=== PATIENT | male | born 1950 | race Caucasian/White ===

== ENCOUNTER 2021-01-10 06:19 | Emergency (ER) | payer BC ==
[~2021-01-10] VITALS: Ht 170.2 cm; Wt 75.0 kg
[2021-01-10 06:39] VITALS: BP 120/84
== END 2021-01-10 07:12 | disposition left against medical advice (07) ==
LOC: ER 06:20
DX: M79.644 Pain in right finger(s) (principal); Z53.21 Procedure and treatment not carried out due to patient leaving prior to being seen by health care provider